=== PATIENT | male | born 1980 | race Caucasian/White ===

== ENCOUNTER 2017-08-04 12:56 | Emergency (ER) | payer OTHER ==
[2017-08-04] MEDS ORDERED: Sodium Chloride 0.9% 10 ML Syringe FLUSH PRN (13:10)
[2017-08-04] MEDS ORDERED: Ondansetron 4 MG/2 ML SDV IVPUSH ONE (13:14)
[2017-08-04] MEDS ORDERED: Morphine 2 MG/ML Syringe IVPUSH ONE (13:14)
[2017-08-04] MEDS ORDERED: Sodium Chloride 0.9% 1,000 ML IV SCH (13:15)
--- NOTE | 2017-08-04 13:17 | EDM.PDOC ---
ED HPI GENERAL MEDICAL PROBLEM - General Chief Complaint: Flank Pain Stated Complaint: RIGHT SIDE PAIN Time Seen by Provider: 08/04/17 13:06 Source of Information: Reports: Patient, Family History Limitations: Reports: No Limitations - History of Present Illness INITIAL COMMENTS - FREE TEXT/NARRATIVE: 36 y.o.w.m came to the ed wiht his SO due to acute pain at his r flank radiating to his right groin. No kidney stones in the past, pt smokes. No N/V/D no dysuria, no trauma. No other acute medical issues at this time. Onset: Today Onset Date: 08/04/17 Onset Time: 06:00 Duration: Hour(s): Location: Reports: Abdomen Quality: Reports: Ache, Burning Severity: Moderate Improves with: Reports: None Worsens with: Reports: None Context: Reports: Other Associated Symptoms: Reports: No Other Symptoms Right Flank Pain Score (Numeric/FACES): 9 - Related Data Allergies Allergy/AdvReac Type Severity Reaction Status Date / Time No Known Allergies Allergy Verified 08/04/17 13:03 Home Meds: Home Meds Tamsulosin HCl [Flomax] 0.4 mg PO DAILY #4 cap.er.24h 08/04/17 [Rx] oxyCODONE HCl/Acetaminophen [Percocet 5-325 mg Tablet] 1 each PO Q6HR PRN #16 tablet 08/04/17 [Rx] Social & Family History - Tobacco Use Smoking Status *Q: Current Every Day Smoker Years of Tobacco use: 10 Packs/Tins Daily: 0.5 - Caffeine Use Caffeine Use: Reports: Coffee, Energy Drinks, Soda - Recreational Drug Use Recreational Drug Use: No ED ROS GENERAL - Review of Systems Review Of Systems: See Below Constitutional: Reports: No Symptoms HEENT: Reports: No Symptoms Respiratory: Reports: No Symptoms Cardiovascular: Reports: No Symptoms Endocrine: Reports: No Symptoms GI/Abdominal: Reports: Abdominal Pain (r flank pain) : Reports: No Symptoms Musculoskeletal: Reports: No Symptoms Skin: Reports: No Symptoms Neurological: Reports: No Symptoms Psychiatric: Reports: No Symptoms Hematologic/Lymphatic: Reports: No Symptoms Immunologic: Reports: No Symptoms ED EXAM, GI/ABD - Physical Exam Exam: See Below Exam Limited By: No Limitations General Appearance: Alert, WD/WN, Moderate Distress, Obese Eyes: Bilateral: Normal Appearance Ears: Normal External Exam, Normal Canal Nose: Normal Inspection, Normal Mucosa Throat/Mouth: Normal Inspection, Normal Lips Head: Atraumatic, Normocephalic Neck: Normal Inspection, Supple Respiratory/Chest: No Respiratory Distress, Lungs Clear, Normal Breath Sounds Cardiovascular: Normal Peripheral Pulses, Regular Rate, Rhythm, No Edema, No Gallop GI/Abdominal Exam: Tender (r flank, groin) (Male) Exam: Deferred Rectal (Males) Exam: Deferred Back Exam: Normal Inspection, Full Range of Motion Extremities: Normal Inspection, Normal Range of Motion, Non-Tender, No Pedal Edema Neurological: Alert, Oriented, CN II-XII Intact, Normal Cognition, Normal Gait Psychiatric: Normal Affect, Normal Mood Skin Exam: Warm, Dry, Intact, Normal Color Lymphatic: No Adenopathy Course - Vital Signs Text/Narrative:: 36 y.o.w.m came to the ed wiht his SO due to acute pain at his r flank radiating to his right groin. No kidney stones in the past, pt smokes. No N/V/D no dysuria, no trauma. No other acute medical issues at this time. PE: R flank pain Imaging: CT abd'pelvis: 1 mm stone r UVJ mild hydro Impression: 1 mm stone r UVJ mild hydro Tx: Toradol, Morphine, Dilaudid. Flomax Reexam: Improved Plan: D/C with instructions Last Recorded V/S: Last Vital Signs Temp 36.6 C 08/04/17 13:06 Pulse 75 08/04/17 15:30 Resp 20 08/04/17 13:06 BP 124/74 08/04/17 15:30 Pulse Ox 100 08/04/17 13:06 - Orders/Labs/Meds Orders: Active Orders 24 hr Category Date Time Status Abdomen Pelvis w Cont [CT] Stat Exams 08/04/17 14:39 Taken Iopamidol [Isovue-370 (76%)] Med 08/04/17 14:30 Active 100 ml IV . DIRECTED Sodium Chloride 0.9% [Normal Saline] 1,000 ml Med 08/04/17 13:15 Active IV ASDIRECTED Sodium Chloride 0.9% [Saline Flush] Med 08/04/17 13:10 Active 10 ml FLUSH ASDIRECTED PRN Peripheral IV Insertion Adult [OM.PC] Routine Oth 08/04/17 13:10 Ordered Medication Orders Sodium Chloride (Normal Saline) 1,000 mls @ 125 mls/hr IV ASDIRECTED ROCK Last Admin: 08/04/17 13:41 Dose: 125 mls/hr Iopamidol (Isovue-370 (76%)) 100 ml IV . DIRECTED [facility] Last Admin: 08/04/17 14:37 Dose: 100 ml Sodium Chloride (Saline Flush) 10 ml FLUSH ASDIRECTED PRN PRN Reason: Keep Vein Open Last Admin: 08/04/17 13:14 Dose: 10 ml Labs: Laboratory Tests 08/04/17 08/04/17 08/04/17 Range/Units 13:03 13:25 13:25 WBC 13.7 H (4.5-12.0) X10-3/uL RBC 5.40 (4.30-5.75) x10(6)uL Hgb 15.9 H (11.5-15.5) g/dL Hct 46.9 (30.0-51.3) % MCV 86.9 (80-96) fL MCH 29.6 (27.7-33.6) pg MCHC 34.0 (32.2-35.4) g/dL RDW 12.3 (11.5-15.5) % Plt Count 339 (125-369) X10(3)uL MPV 8.2 (7.4-10.4) fL Neut % (Auto) 79.3 (46-82) % Lymph % (Auto) 14.2 (13-37) % [place] % (Auto) 5.5 (4-12) % Eos % (Auto) 1 (1.0-5.0) % Baso % (Auto) 0 (0-2) % Neut # (Auto) 10.9 H (1.6-8.3) # Lymph # (Auto) 1.9 (0.6-5.0) # [place] # (Auto) 0.8 (0.0-1.3) # Eos # (Auto) 0.1 (0.0-0.8) # Baso # (Auto) 0.0 (0.0-0.2) # PT 10.4 (8.7-11.1) INR 1.03 (0.89-1.13) Sodium (135-145) mmol/L Potassium (3.5-5.3) mmol/L Chloride (100-110) mmol/L Carbon Dioxide (23-29) mmol/L BUN (5-20) mg/dL Creatinine (0.6-1.3) mg/dL Est Cr Clr Drug Dosing mL/min Estimated GFR (MDRD) (>60) BUN/Creatinine Ratio (9-20) Glucose (80-116) mg/dL Calcium (8.6-10.2) mg/dL Urine Color Yellow (YELLOW) Urine Appearance Cloudy (CLEAR) Urine pH 5.0 (5.0-6.5) Ur Specific [place] 1.030 H (1.010-1.025) Urine Protein Negative (NEGATIVE) mg/dL Urine Glucose (UA) Normal (NEGATIVE) mg/dL Urine Ketones Negative (NEGATIVE) mg/dL Urine Occult Blood Negative (NEGATIVE) Urine Nitrite Negative (NEGATIVE) Urine Bilirubin Small H (NEGATIVE) Urine Urobilinogen Normal (NEGATIVE) mg/dL Ur Leukocyte Esterase Negative (NEGATIVE) Urine RBC 0-5 (0) Urine WBC 0-5 (0) Ur Squamous Epith Cells Occasional (NS,R,O) Amorphous Sediment Many Urine Bacteria Moderate H (NS) 08/04/ Range/Units 13:25 WBC (4.5-12.0) X10-3/uL RBC (4.30-5.75) x10(6)uL Hgb (11.5-15.5) g/dL Hct (30.0-51.3) % MCV (80-96) fL MCH (27.7-33.6) pg MCHC (32.2-35.4) g/dL RDW (11.5-15.5) % Plt Count (125-369) X10(3)uL MPV (7.4-10.4) fL Neut % (Auto) (46-82) % Lymph % (Auto) (13-37) % [place] % (Auto) (4-12) % Eos % (Auto) (1.0-5.0) % Baso % (Auto) (0-2) % Neut # (Auto) (1.6-8.3) # Lymph # (Auto) (0.6-5.0) # [place] # (Auto) (0.0-1.3) # Eos # (Auto) (0.0-0.8) # Baso # (Auto) (0.0-0.2) # PT (8.7-11.1) INR (0.89-1.13) Sodium 138 (135-145) mmol/L Potassium 4.4 (3.5-5.3) mmol/L Chloride 103 (100-110) mmol/L Carbon Dioxide 26 (23-29) mmol/L BUN 24 H (5-20) mg/dL Creatinine 1.0 (0.6-1.3) mg/dL Est Cr Clr Drug Dosing 100.70 mL/min Estimated GFR (MDRD) > 60 (>60) BUN/Creatinine Ratio 24.0 H (9-20) Glucose 121 H (80-116) mg/dL Calcium 9.1 (8.6-10.2) mg/dL Urine Color (YELLOW) Urine Appearance (CLEAR) Urine pH (5.0-6.5) Ur Specific [place] (1.010-1.025) Urine Protein (NEGATIVE) mg/dL Urine Glucose (UA) (NEGATIVE) mg/dL Urine Ketones (NEGATIVE) mg/dL Urine Occult Blood (NEGATIVE) Urine Nitrite (NEGATIVE) Urine Bilirubin (NEGATIVE) Urine Urobilinogen (NEGATIVE) mg/dL Ur Leukocyte Esterase (NEGATIVE) Urine RBC (0) Urine WBC (0) Ur Squamous Epith Cells (NS,R,O) Amorphous Sediment Urine Bacteria (NS) Meds: Medications Generic Name Dose Route Start Last Admin Trade Name Freq PRN Reason Stop Dose Admin Sodium Chloride 1,000 mls @ 125 mls/hr 08/04/17 13:15 08/04/17 13:41 Normal Saline IV 125 mls/hr ASDIRECTED ROCK Administration Iopamidol 100 ml 08/04/17 14:30 08/04/17 14:37 Isovue-370 (76%) IV 100 ml . DIRECTED ROCK Administration Sodium Chloride 10 ml 08/04/17 13:10 08/04/17 13:14 Saline Flush FLUSH 10 ml ASDIRECTED PRN Administration Keep Vein Open Discontinued Medications Generic Name Dose Route Start Last Admin Trade Name Freq PRN Reason Stop Dose Admin Hydromorphone HCl 1 mg 08/04/17 14:50 08/04/17 15:10 Dilaudid IVPUSH 08/04/17 14:51 1 mg ONETIME ONE Administration Piperacillin Sod/Tazobactam 50 mls @ 100 mls/hr 08/04/17 15:00 08/04/17 15:19 Sod 3.375 gm/ Sodium Chloride IV Not Given Q6H ROCK Ketorolac Tromethamine 30 mg 08/04/17 13:40 08/04/17 13:44 Toradol IVPUSH 08/04/17 13:41 30 mg ONETIME ONE Administration Morphine Sulfate 2 mg 08/04/17 13:14 08/04/17 13:19 Morphine IVPUSH 08/04/17 13:15 2 mg ONETIME ONE Administration Ondansetron HCl 8 mg 08/04/17 13:14 08/04/17 13:18 Zofran IVPUSH 08/04/17 13:15 8 mg ONETIME ONE Administration Tamsulosin HCl 0.4 mg 08/04/17 15:18 08/04/17 15:21 Flomax PO 08/04/17 15:19 0.4 mg ONETIME ONE Administration Departure - Departure Time of Disposition: 15:20 Disposition: Home, Self-Care 01 Condition: Good Clinical Impression: Urolithiasis Qualifiers: Urinary calculus location: lower urinary tract Qualified Code(s): N21.9 - Calculus of lower urinary tract, unspecified - Discharge Information Prescriptions: oxyCODONE HCl/Acetaminophen [Percocet 5-325 mg Tablet] 1 each PO Q6HR PRN #16 tablet PRN Reason: severe pain only Tamsulosin HCl [Flomax] 0.4 mg PO DAILY #4 cap.er.24h Instructions: Kidney Stones, [id number] Referrals: PCP,None [Primary Care Provider] - Forms: ED Department Discharge Additional Instructions: Please increase water intake, please take the meds as recommended, please take Motrin 600 mg every 8 hours for 3 days, please follow up with your PMD/Urologist , Please come back to the ed if your symptoms get worse acutely. - My Orders Last 24 Hours: My Active Orders 08/04/17 13:10 Sodium Chloride 0.9% [Saline Flush] 10 ml FLUSH ASDIRECTED PRN Peripheral IV Insertion Adult [OM.PC] Routine 08/04/17 13:15 Sodium Chloride 0.9% [Normal Saline] 1,000 ml IV ASDIRECTED 08/04/17 14:30 Iopamidol [Isovue-370 (76%)] 100 ml IV . DIRECTED 08/04/17 14:39 Abdomen Pelvis w Cont [CT] Stat - Assessment/Plan Last 24 Hours: My Active Orders 08/04/17 13:10 Sodium Chloride 0.9% [Saline Flush] 10 ml FLUSH ASDIRECTED PRN Peripheral IV Insertion Adult [OM.PC] Routine 08/04/17 13:15 Sodium Chloride 0.9% [Normal Saline] 1,000 ml IV ASDIRECTED 08/04/17 14:30 Iopamidol [Isovue-370 (76%)] 100 ml IV . DIRECTED 08/04/17 14:39 Abdomen Pelvis w Cont [CT] Stat
[2017-08-04] MEDS ORDERED: Ketorolac 30 MG/ML SDV IVPUSH ONE (13:40)
[2017-08-04] MEDS ORDERED: Iopamidol 755 Mg/ML 100 ML Bottle IV SCH (14:30)
[2017-08-04] MEDS ORDERED: HYDROmorphone 2 MG/ML SDV IVPUSH ONE (14:50)
[2017-08-04] MEDS ORDERED: Piperacillin/Tazobactam 3.375 GM in Sodium Chloride 0.9% 50 ML IV SCH (15:00)
[2017-08-04] MEDS ORDERED: Tamsulosin 0.4 MG Cap.ER PO ONE (15:18)
[2017-08-04 15:35] VITALS: BP 124/74
== END 2017-08-04 15:30 | disposition home or self-care (01) ==
LOC: FB.ED 12:56
DX: N13.2 Hydronephrosis with renal and ureteral calculous obstruction (principal); F17.210 Nicotine dependence, cigarettes, uncomplicated; Z79.899 Other long term (current) drug therapy
CPT/HCPCS: 36415; 74177; 80048; 81001; 85025; 85610; 96361; 96374; 96375; 99285; A9270; J1170; J1885; J2270; J2405; J7040; J7050; Q9967

== ENCOUNTER 2022-07-25 13:23 | Emergency (ER) | payer OTHER ==
[2022-07-25] MEDS ORDERED: Sodium Chloride 0.9% 10 ML Syringe FLUSH PRN (13:44)
[2022-07-25] MEDS ORDERED: Morphine 4 MG/ML VIAL IVPUSH ONE (13:46)
[2022-07-25] MEDS ORDERED: Ketorolac 30 MG/ML SDV IVPUSH ONE (13:46)
[2022-07-25] MEDS ORDERED: Sodium Chloride 0.9% 1,000 ML IV SCH (14:00)
[2022-07-25 14:20] LABS: ESTIMATED GFR 66 mL/min (>60)
[2022-07-25 14:30] VITALS: BP 146/103; PULSE 68
== END 2022-07-25 15:25 | disposition home or self-care (01) ==
LOC: FB.ED 13:23
DX: N13.2 Hydronephrosis with renal and ureteral calculous obstruction (principal); Z91.040 Latex allergy status
CPT/HCPCS: 36415; 74176; 80048; 81001; 85025; 96361; 96374; 96375; 99284; J1885; J2270; J3490; J7030

== ENCOUNTER 2024-10-31 19:01 | Emergency (ER) | payer BC ==
[2024-10-31 19:11] VITALS: BP 135/78; PULSE 87
== END 2024-10-31 20:00 | disposition left against medical advice (07) ==
LOC: FB.ED 19:01
DX: Z53.21 Procedure and treatment not carried out due to patient leaving prior to being seen by health care provider (principal)